=== PATIENT | male | born 1965 | race African-American/Black ===

== ENCOUNTER 2021-03-17 08:20 | Day surgery (SDC) | payer OTHER ==
[~2021-03-17] VITALS: Ht 175 cm; Wt 104.0 kg
[~2021-03-17 08:20] MED LIST: ACETAMINOPHEN500 M1 PO; ASPIRIN325 MG PO; EMLA CREAM5 GM TOP; IBUPROFEN800 MG PO; NEURONTIN100 MG PO; PERCOCET 5-3251 EACH PO
--- NOTE | 2021-03-17 14:33 | NUR ---
PT WILL D/C HOME WITH SPOUSE. PT. HAS A ROLLING WALKER. PT IS A THE IN WILL DETERMINE THE OUTPT THERAPY.
--- NOTE | 2021-03-17 15:30 | NUR ---
TC TO PT. PRIMARY LYNOLE EMORYU AT THE [facility]. [phone]. THE NURSE WAS NOTIFIED TO SECURE A CONSULT FOR OUTPT THERAPY FROM THE DOCTOR. THE PT IS NOT TO GO TO THERAPY UNTIL HE GETS AN AUTH FROM [facility]. THEY WILL COHNTACT THE PT WITH THE APPT. I ADVISED THE NURSE AT [facility] THAT PT WANTS [facility] AT [facility].
[2021-03-18 05:24] LABS: BASOPHIL 0.1 % (0-2); EOSINOPHIL 0 % (0-5); HCT 40.2 % (42.0-52.0); HGB 12.8 g/dl (13.2-18.0); MCH 28.3 pg (25.0-31.0); MCHC 31.8 g/dL (32.0-36.0); MCV 88.7 fL (78.0-100.0); MONOCYTE 11.8 % (0-12); MPV 10.5 fL (6.0-9.5); NEUTROPHIL 68.7 % (41-80); NRBC 0; PLT 187 K/uL (150-400); RBC 4.53 M/uL (4.70-6.00); RDW 12.5 % (11.5-14.0); WBC 10.5 K/uL (4.0-10.5)
[2021-03-18 05:43] LABS: BUN/CREAT RATIO (CALC) 13.8 RATIO; CREATININE 1.09 mg/dL (0.67-1.17); POTASSIUM 4.2 mmol/L (3.5-5.1)
[2021-03-18] MEDS ORDERED: PANTOPRAZOLE SO40 MG PO (08:08)
[2021-03-18] MEDS ORDERED: FEOSOL325 MG PO (08:08)
[2021-03-18] MEDS ORDERED: CHILDREN'S ASPI81 MG PO (08:08)
--- NOTE | 2021-03-18 10:18 | NUR ---
PT AND I DISCUSSED HIS OUTPT THERAPY HE STATED HE THOUGHT HE WAS HAVING HH TO BEGIN WITH AND THE OUTPT. I ADVISED THAT [facility] HAD TOLD ME OUTPT ONLY. SPOKE WITH [facility] COREAS AND SHE STATED THAT PT NEEDS TO GO ON TO OUTPT. SHE WILL SPEAK WITH PT. [facility] Burciaga ADVISED THAT PT IS GOING TO STAY WIHT OUTPT THERAPY. HE IS AWARE THAT [facility] CONTACT [facility] FOR [facility].
== END 2021-03-18 11:55 | disposition home or self-care (01) ==
LOC: FAS 08:20 → FMS 09:01 → FAS 10:30
PROVIDERS: Orthopaedic Surgery
DX: M17.12 Unilateral primary osteoarthritis, left knee (principal); G89.29 Other chronic pain; Z79.1 Long term (current) use of non-steroidal anti-inflammatories (NSAID); Z79.891 Long term (current) use of opiate analgesic
CPT/HCPCS: 36415; 73560; 80048; 85025; 86850; 86900; 86901; 94010; 94762; 97110; 97162; 97165; 97530-GP; 97535; C1713; C1776; J0171; J0697; J1100; J1170; J1885; J2250; J2270; J2405; J2795; J3010; J7120